=== PATIENT | female | born 1995 | race Caucasian/White ===

== ENCOUNTER 2018-01-17 16:53 | Emergency (ER) | payer OTHER ==
--- NOTE | 2018-01-17 19:49 | RAD ---
RIGHT WRIST THREE VIEWS 01/17/18 HISTORY: Injury. Pain. FINDINGS: Intercarpal and radiocarpal joint spaces are preserved. No fracture. No cortical irregularity. No per iosteal reaction. IMPRESSION: Unremarkable right wrist three views. POS: [facility]
== END 2018-01-17 18:52 | disposition home or self-care (01) ==
LOC: ERS 16:53
DX: M25.531 Pain in right wrist (principal); J45.909 Unspecified asthma, uncomplicated; X58.XXXA Exposure to other specified factors, initial encounter

== ENCOUNTER 2018-08-11 16:00 | Emergency (ER) | payer OTHER ==
[2018-08-11 16:47] LABS: #Basophils 0.1 thou/uL (0.0-0.2); #Eosinphils 0.3 thou/uL (0.0-0.7); #Lymphocytes 2.3 thou/uL (1.20-3.40); #Monocytes 0.6 thou/uL (0.11-0.59); #Neutrophils 7.1 thou/uL (1.40-6.50); %Basophils 1.3 % (0.0-1.0); %Eosinophils 3.1 % (0.0-10.0); %Lymphocytes 22.2 % (21.0-51.0); %Monocytes 5.4 % (0.0-10.0); Hemoglobin 13.6 g/dL (12.0-16.0); Mean Corpuscular HGB CONC 33.7 g/dL (32.0-36.0); Mean Corpuscular Hemoglobin 29.5 pg (27.0-31.0); Mean Corpuscular Volume 87.6 fL (78.0-98.0); Mean Platelet Volume 7.3 fL (7.4-10.4); Platelet Count 222 thou/uL (130-400); RBC Distribution Width 11.9 % (11.5-14.5); Red Blood Cell (RBC) Count 4.61 mill/uL (4.20-5.40); White Blood Cell (WBC) Count 10.4 thou/uL (4.8-10.8)
[2018-08-11 17:02] LABS: ALT (SGPT) 17 U/L (8-55); AST (SGOT) 14 U/L (5-34); Albumin 4.1 g/dL (3.5-5.0); Alkaline Phosphatase 67 U/L (40-150); Anion Gap 12 mmol/L (10-20); BUN (Urea Nitrogen) 13 mg/dL (7.0-18.7); Bilirubin, Total 0.3 mg/dL (0.2-1.2); Calc. Creatinine Clearance 0 mL/min (70-130); Calcium 9.5 mg/dL (7.8-10.44); Carbon Dioxide 26 mmol/L (22-29); Chloride 106 mmol/L (98-107); Estimated GFR-MDRD Greater than 90; Globulin 3.3 g/dL (2.4-3.5); Glucose 102 mg/dL (70-105); Magnesium 2.2 mg/dL (1.6-2.6); Potassium 3.6 mmol/L (3.5-5.1); Protein, Total 7.4 g/dL (6.0-8.3); Sodium 140 mmol/L (136-145)
--- NOTE | 2018-08-11 17:11 | RAD ---
TWO VIEW CHEST: History: Chest pain. Date: 08-11-18 Comparison: 07-27-18 FINDINGS: Two views chest demonstrate the lungs to be well aerated. No evidence of active intrathoracic disease seen. No evidence of effusions, pneumonia, or pneumothorax seen. IMPRESSION: Unremarkable two views chest. POS: [facility]
[2018-08-11 19:49] LABS: Troponin I Less than 0.010 ng/mL (< 0.028)
[2018-08-11] MEDS ORDERED: Ketorolac Tromethamine 30 MG/ML VIAL ONE (20:02)
== END 2018-08-11 20:25 | disposition home or self-care (01) ==
LOC: SCSER 16:00
DX: M94.0 Chondrocostal junction syndrome [Tietze] (principal); R09.1 Pleurisy
CPT/HCPCS: 36415; 71046; 80053; 83735; 83880; 84484; 85025; 85379; 93005; 96374; J1885